=== PATIENT | female | born 1970 | race Caucasian/White ===

== ENCOUNTER → 2023-07-02 13:45 | Outpatient (REF) | payer OTHER, SELFPAY | LOC: HWRAD 13:45 | PROVIDERS: ATTENDING PHYSICIAN Family Medicine | DX: N83.10 Corpus luteum cyst of ovary, unspecified side (principal); Z80.41 Family history of malignant neoplasm of ovary; Z12.73 Encounter for screening for malignant neoplasm of ovary | CPT/HCPCS: 76830; 76856 ==

== ENCOUNTER → 2024-01-16 11:42 | Outpatient (REF) | payer OTHER, SELFPAY | LOC: WDC 11:42 | PROVIDERS: ATTENDING PHYSICIAN Family Medicine | DX: Z12.31 Encounter for screening mammogram for malignant neoplasm of breast (principal) | CPT/HCPCS: 77063; 77067 ==

== ENCOUNTER → 2025-05-10 13:55 | Outpatient (REF) | payer BC, SELFPAY | LOC: RCS 13:55 | PROVIDERS: ATTENDING PHYSICIAN Family Medicine | DX: E78.5 Hyperlipidemia, unspecified (principal); R00.2 Palpitations; Z12.31 Encounter for screening mammogram for malignant neoplasm of breast | CPT/HCPCS: 93225; 93226 ==

== ENCOUNTER → 2025-05-13 14:50 | Outpatient (REF) | payer BC, SELFPAY | LOC: HWRAD 14:50 | PROVIDERS: ATTENDING PHYSICIAN Family Medicine | DX: E78.5 Hyperlipidemia, unspecified (principal) | CPT/HCPCS: 75571 ==

== ENCOUNTER → 2025-06-14 18:46 | Outpatient (REF) | payer BC, SELFPAY | LOC: WDC 18:46 | PROVIDERS: ATTENDING PHYSICIAN Family Medicine | DX: Z12.31 Encounter for screening mammogram for malignant neoplasm of breast (principal) | CPT/HCPCS: 77063; 77067 ==

== ENCOUNTER → 2025-06-16 08:15 | Outpatient (REF) | payer BC, SELFPAY | LOC: HWRCS 08:15 | PROVIDERS: ATTENDING PHYSICIAN Family Medicine | DX: I31.39 Other pericardial effusion (noninflammatory) (principal) | CPT/HCPCS: 93306 ==